=== PATIENT | male | born 1955 | race Caucasian/White ===

== ENCOUNTER 2023-11-15 12:27 | Emergency (ER) | payer MEDICARE, SELFPAY ==
[2023-11-15 12:40] VITALS: BP 146/76; PULSE 80; O2SAT 98; BMI 37.0
[2023-11-15 12:42] VITALS: BP 150/65; PULSE 82; RESP 19; TEMP 36.8; O2SAT 98
[2023-11-15 13:02] LABS: MANUAL DIFF FLAG NO
[2023-11-15 13:08] LABS: Basophils Absolute Auto 0.1 X10*3/uL (0.0-0.2); Basophils Percent Auto 0.5 % (0-2); Eosinophils Absolute Auto 0.2 X10*3/uL (0.0-0.4); Eosinophils Percent Auto 2.2 % (0-4); Hematocrit 44.5 % (42.0-52.0); Hemoglobin 13.6 g/dl (14.0-18.0); Imm Gran Abs Auto 0.04 X10*3/uL (0.00-0.03); Imm Gran Pct Auto 0.4 % (0.0-0.4); Lymphocytes Absolute Auto 1.2 X10*3/uL (1.2-4.9); Lymphocytes Percent Auto 13.1 % (20-40); Mean Corpuscular HGB Conc 30.6 g/dl (31.0-36.0); Mean Corpuscular Hemoglobin 24.6 pg (27.0-33.0); Mean Corpuscular Volume 80.6 fL (80.0-98.0); Mean Platelet Volume 9.1 fL (9.4-12.4); Monocytes Absolute Auto 0.6 X10*3/uL (0.1-1.2); Monocytes Percent Auto 6.6 % (2-11); Neutrophils Absolute Auto 7.3 x10*3/uL (2.0-8.3); Neutrophils Percent Auto 77.2 % (45-73); Platelet Count 204 X10*3/uL (160-400); Red Blood Count 5.52 X10*6/uL (4.60-5.80); Red Cell Distribution Width 17.2 % (11.0-16.0); White Blood Count 9.4 X10*3/uL (4.8-10.8)
[2023-11-15 13:12] LABS: INTERNATIONAL NORM RATIO 1.1 (0.9-1.1); Prothrombin Time 13.1 SEC (11.1-13.3)
[2023-11-15 13:15] LABS: Partial Thromboplastin Time 30.9 SEC (26.0-36.8)
[2023-11-15 13:19] LABS: Alanine Aminotransferase 40 U/L (0-40); Alkaline Phosphatase 190 U/L (39-117); Anion Gap 16 (12-20); Aspartate Amino Transferase 22 U/L (5-37); Bilirubin Total 0.4 mg/dL (0.0-1.0); Blood Urea Nitrogen 22 mg/dL (9-16); Calcium 7.2 mg/dL (8.4-10.2); Carbon Dioxide 27 mmol/L (22-29); Chloride 106 mmol/L (96-108); Creatinine Clr Calc Pharmacy 68.5; Estimated Glomerular Filt Rate 49; Glucose Random 153 mg/dL (60-115); Magnesium 1.9 mg/dL (1.6-2.6); Potassium 4.2 mmol/L (3.3-5.1); Sodium 145 mmol/L (135-145); Total Protein 6.9 g/dL (6.5-8.0)
[2023-11-15 13:23] LABS: B Type Natriuretic Peptide 15 pg/mL (<100)
[2023-11-15 13:26] LABS: Troponin-I High Sensitivity 2.9 ng/L (<3.5-35.0)
--- NOTE | 2023-11-15 13:30 | ED.GENADULT ---
HPI - General Adult General Chief complaint: Recheck/Abnormal Lab/Rx Stated complaint: ABN LABS FROM SNF PER EMS Time Seen by Provider: 11/15/23 13:30 History of Present Illness ED Provider: Kristen WISE narrative: The patient is a 68-year-old male who lives at an assisted living facility in [place]. He had a regular appointment with his primary care provider yesterday and had routine outpatient lab work. This apparently showed a significantly low calcium result. Patient was told that he needed to go to the emergency room because of this and an ambulance was called and he was brought to the hospital here. The patient is asymptomatic. He had been feeling in his usual health yesterday when he saw his PCP and also today when he came to the hospital. He has no complaints. 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 He denies any new medications. He has no numbness or tingling in his hands or extremities. No sense of weakness or other symptoms. No fever, sweats, chills. The patient did not come with a list of his medications and he is not able to tell me the names of his medications. Related Data Previous Rx's ?Medication ?Instructions ?Recorded calcium carbonate 500 mg PO BID 30 days #60 tabs 11/15/23 Allergies Allergy/AdvReac Type Severity Reaction Status Date / Time No Known Allergies Allergy Verified 11/15/23 12:42 Review of Systems Review of Systems: Yes all other systems are reviewed and are negative PMFSH Social History Social History Advance Directives: No Do you have a plan to hurt others: No Plan Physical Exam ED Vital Signs: Vital Signs - 24 hr 11/15/23 12:42 11/15/23 14:00 Temperature 98.2 F Pulse Rate 82 84 Respiratory Rate 19 16 Blood Pressure 150/65 H 143/72 H Pulse Oximetry 98 99 Oxygen Delivery Method Room Air Room Air BMI result Body Mass Index 37.0 Const Other: The patient is a 68-year-old male who looks somewhat chronically ill but who does not look acutely ill in any way. He is pleasant and cooperative and in no distress. HENMT Other: Face is symmetrical. Mucous membranes moist. Eyes Other: Pupils are round equal, conjunctivae are clear Neck Other: Neck is supple, no JVD Resp Effort & Inspection: normal respiratory effort Auscultation: clear to auscultation bilaterally Cardio Rate: regular rate Rhythm: regular rhythm Heart sounds: S1 normal heart sound present and S2 normal heart sound present GI Other: The patient has a large, protuberant abdomen. The abdomen is soft and nontender. There is a soft umbilical hernia. Skin Other: The patient has an abrasion to the skin of the right medial lower leg. The skin is otherwise unremarkable. Neuro Other: The patient is awake and alert with a normal mental status. Cranial nerves are grossly intact. He moves his extremities normally and appropriately. Extrem Other: The patient has a left [id number] amputation. He has an abrasion on the medial aspect of the right lower leg. Medications Administered Discontinued Medications Generic Name Dose Route Start Last Admin Trade Name Katiuska PRN Reason Stop Dose Admin Calcium Carbonate 1,500 mg 11/15/23 14:59 11/15/23 15:17 Calcium Carbonate 750 Mg Tab.Chew PO 11/15/23 15:00 1,500 mg ONCE ONE Administration Medical Decision Making Medical Decision Making [facility] Narrative: The patient is a 68-year-old male who arrives to the hospital by ambulance because of labs that were done yesterday as an outpatient that showed a low calcium. I do not have access to yesterday's lab values. I believe that was done through the [facility] system. Here the patient looks well. He has no symptoms related to hypocalcemia. He has a very slight QTC prolongation with a QTC of 509 on his EKG. Given the absence of symptoms I suspect that his hypocalcemia is probably of gradual onset and subacute. I discussed the case with 1 of our nephrologists who wanted to know what medications the patient was on. Unfortunately the patient does not have a medication list here can not tell me his medications. In any event given the absence of symptoms it seems much more likely that this is a chronic case of hypocalcemia rather than anything acute. Therefore it does not seem as if there is a need for acute intervention. We sent a PTH which came back at 437. His vitamin-D 250 H comes back at 10 which is low. His alk phos is high at 190. I think all of these issues are things that could be managed as an outpatient. Patient will be started on oral calcium carbonate and is advised to contact his primary care doctor for additional management of this issue. Lab Data 11/15/23 12:58 11/15/23 12:58 Labs: Lab Results 11/15/23 11/15/23 Range/Units 12:58 15:01 WBC 9.4 (4.8-10.8) X10*3/uL RBC 5.52 (4.60-5.80) X10*6/uL Hgb 13.6 L (14.0-18.0) g/dl Hct 44.5 (42.0-52.0) % MCV 80.6 (80.0-98.0) fL MCH 24.6 L (27.0-33.0) pg MCHC 30.6 L (31.0-36.0) g/dl RDW 17.2 H (11.0-16.0) % Plt Count 204 (160-400) X10*3/uL MPV 9.1 L (9.4-12.4) fL Immature Gran % (Auto) 0.4 (0.0-0.4) % Neut % (Auto) 77.2 H (45-73) % Lymph % (Auto) 13.1 L (20-40) % [place] % (Auto) 6.6 (2-11) % Eos % (Auto) 2.2 (0-4) % Baso % (Auto) 0.5 (0-2) % Lymph # (Auto) 1.2 (1.2-4.9) X10*3/uL [place] # (Auto) 0.6 (0.1-1.2) X10*3/uL Eos # (Auto) 0.2 (0.0-0.4) X10*3/uL Baso # (Auto) 0.1 (0.0-0.2) X10*3/uL Abs Immat Gran (auto) 0.04 H (0.00-0.03) X10*3/uL Absolute Neuts (auto) 7.3 (2.0-8.3) x10*3/uL Absolute Nucleated RBC 0.000 (0.0-0.012) X10*3/uL Nucleated RBC % (auto) 0.0 (0.0-0.2) /100WBC PT 13.1 (11.1-13.3) SEC INR 1.1 (0.9-1.1) APTT 30.9 (26.0-36.8) SEC Sodium 145 (135-145) mmol/L Potassium 4.2 (3.3-5.1) mmol/L Chloride 106 (96-108) mmol/L Carbon Dioxide 27 (22-29) mmol/L Anion Gap 16 (12-20) BUN 22 H (9-16) mg/dL Creatinine 1.44 H (0.5-1.4) mg/dL Estim Creat Clear Calc 68.5 Estimated GFR 49 Random Glucose 153 H (60-115) mg/dL Calcium 7.2 L (8.4-10.2) mg/dL Phosphorus 3.3 (2.7-4.5) mg/dL Magnesium 1.9 (1.6-2.6) mg/dL Total Bilirubin 0.4 (0.0-1.0) mg/dL AST 22 (5-37) U/L ALT 40 (0-40) U/L Alkaline Phosphatase 190 H (39-117) U/L Troponin I High Sens 2.9 (<3.5-35.0) ng/L B-Natriuretic Peptide 15 (<100) pg/mL Total Protein 6.9 (6.5-8.0) g/dL Albumin 4.0 (3.5-5.0) g/dL Amylase 95 (28-100) U/L 25-OH Vitamin D Total 10.0 L (>30) ng/mL PTH Intact 437.8 H (8.7-77.1) pg/mL Independent Interpretation I performed an independent interpretation of an: EKG Interpretation: EKG at 13:43 shows sinus rhythm with first-degree AV block at 85 beats per minute. There is a right bundle branch block pattern. QTC mildly elevated at 509. Discharge Plan Discharge Clinical Impression: Hypocalcemia Patient Disposition: Home, Self-Care Instructions: Hypocalcemia (ED) Additional Instructions: Your calcium level today is low but there is no indication today that you need to be hospitalized to address this low calcium level. I have sent a prescription for calcium that you may take by mouth. Please take the calcium carbonate tablets 2 times a day as prescribed. Additionally other blood tests have been sent to help determine the reason for your low calcium level. Please contact your regular doctor's office to set up a follow up appointment to discuss the results of these tests and to discuss whether the additional testing may be done to investigate the cause of your low calcium levels. Therefore please take the calcium prescribed and follow up soon with your regular doctor. If at any point you feel significantly worse please return to the emergency room. Prescriptions: New calcium carbonate 500 mg calcium (1,250 mg) tablet 500 mg PO BID 30 Days Qty: 60 0RF Referrals: Ines Mauricio MD [Primary Care Provider] - (hypocalcemia) Print Language: Romansh
--- NOTE | 2023-11-15 13:36 | ECG_ITS ---
Test Reason : HYPOCALCEMIA Blood Pressure : / mmHG Vent. Rate : 085 BPM Atrial Rate : 085 BPM P-R Int : 250 ms QRS Dur : 128 ms QT Int : 428 ms P-R-T Axes : 057 002 023 degrees QTc Int : 509 ms Sinus rhythm with 1st degree A-V block with Premature atrial complexes Right bundle branch block Abnormal ECG No previous ECGs available Referred By: Juanjo Peterson Electronically Signed By:Donnie Johnson
[2023-11-15 14:00] VITALS: BP 143/72; PULSE 84; RESP 16; O2SAT 99
[2023-11-15 14:46] LABS: Amylase 95 U/L (28-100); Phosphorus 3.3 mg/dL (2.7-4.5)
[2023-11-15] MEDS: Calcium Carbonate 750 MG TAB.CHEW 1500 MG PO (15:17)
[2023-11-15 15:27] LABS: Parathyroid Hormone Intact 437.8 pg/mL (8.7-77.1)
[2023-11-15 16:15] VITALS: BP 149/73; PULSE 86; RESP 16; O2SAT 97
--- NOTE | 2023-11-15 16:15 | PC.NURSE ---
medication administered per provider order. pt waiting for transportation via S to [facility] at this time. pt resting in no apparent distress. no sob/wob noted. respirations even/unlabored. pt repositioned to comfort. call mary placed within reach.
[2023-11-15 18:07] VITALS: BP 149/73; PULSE 86; RESP 16; TEMP 36.8; O2SAT 97
--- NOTE | 2023-11-15 18:07 | PC.NURSE ---
report given to [facility] crew at this time. pt being transported back to [facility] at this time. this RN attempted to call [facility] to give report - per pocket secretary assembler at facility - all RNs left for the night.
== END 2023-11-15 18:08 | disposition home or self-care (01) ==
PROVIDERS: Emergency Provider Emergency Medicine; PCP Internal Medicine
DX: E83.51 Hypocalcemia (principal); I44.30 Unspecified atrioventricular block
CPT/HCPCS: 36415; 80053; 82150; 82306; 83735; 83880; 83970; 84100; 84484; 85025; 85610; 85730; 93005; 99283; 99284

== ENCOUNTER → 2023-11-15 13:36 | Outpatient (BNV) | payer MEDICARE, SELFPAY | PROVIDERS: Emergency Provider Emergency Medicine; PCP Internal Medicine; Visit Provider Internal Medicine Cardiovascular Disease | DX: I44.0 Atrioventricular block, first degree (principal); I49.1 Atrial premature depolarization | CPT/HCPCS: 93010 ==